=== PATIENT | female | born 1995 | race Caucasian/White ===

== ENCOUNTER 2023-12-19 08:52 | Emergency (ER) | payer OTHER ==
[2023-12-19 09:29] VITALS: O2SAT 100
[2023-12-19 09:33] LABS: BASOPHILS % (AUTO) 0.2 %; EOSINOPHILS # (AUTO) 0.2 10^3/uL (0.0-0.7); EOSINOPHILS % (AUTO) 2.3 %; HCT - HEMATOCRIT 40.9 % (37.0-47.0); HGB - HEMOGLOBIN 14.2 g/dL (12.0-16.0); LYMPHOCYTES # (AUTO) 1.7 10^3/uL (1.5-3.5); LYMPHOCYTES % (AUTO) 19.1 %; MEAN CORPUSCULAR HEMOGLOBIN 32.6 pg (27.0-31.0); MEAN CORPUSCULAR HGB CONC 34.7 g/dL (32.0-36.0); MEAN PLATELET VOLUME 11.1 fL (7.9-10.8); MONOCYTES # (AUTO) 0.6 10^3/uL (0.0-1.0); MONOCYTES % (AUTO) 6.6 %; NEUTROPHILS # (AUTO) 6.2 10^3/uL (1.5-6.6); NEUTROPHILS % (AUTO) 71.5 %; PLT - PLATELET COUNT 169 10^3/uL (130-450); RED BLOOD COUNT 4.35 10^6/uL (4.20-5.40); WHITE BLOOD COUNT 8.7 x10^3/uL (4.8-10.8)
[2023-12-19 09:43] LABS: BILIRUBIN,URINE NEGATIVE (NEGATIVE); GLUCOSE, URINE (UA) NEGATIVE (NEGATIVE); KETONES,URINE (UA) NEGATIVE (NEGATIVE); LEUKOCYTE ESTERASE, URINE NEGATIVE (NEGATIVE); NITRITE,URINE NEGATIVE (NEGATIVE); OCCULT BLOOD,URINE TRACE-INTA (NEGATIVE); PROTEIN,URINE NEGATIVE (NEGATIVE); UROBILINOGEN,URINE 0.2 (NORMAL) E.U./dL (NORMAL)
[2023-12-19] MEDS ORDERED: iohexoL-300 100 ML VIAL ONE (09:44)
[2023-12-19 09:48] LABS: ALBUMIN 4.6 g/dL (3.2-5.5); ALBUMIN/GLOBULIN RATIO 1.7 (1.0-2.2); BILIRUBIN,TOTAL 1.1 mg/dL (0.2-1.0); CALCIUM 9.4 mg/dL (8.5-10.3); POTASSIUM 3.9 mmol/L (3.5-4.5); TOTAL PROTEIN 7.3 g/dL (6.4-8.9)
[2023-12-19 09:49] LABS: CLARITY,URINE CLEAR (CLEAR); HCG UR QUAL NEGATIVE
--- NOTE | 2023-12-19 11:25 | Ultrasound Report ---
PROCEDURE: Pelvic w/Transvag+Doppler Comp INDICATIONS: pelvic pain, L., ovarian cyst CT TECHNIQUE: Real-time scanning was performed of the pelvic organs, with image documentation. Additional endovagi nal scanning was necessary due to incomplete visualization of the adnexal and endometrial structures by transabdominal scanning. Doppler interrogation was performed of the ovaries bilaterally. COMPARISON: Abdominal and pelvic CT dated 12/19/2023 FINDINGS: Uterus: Uterus is anteverted and normal in size at 7.2 x 2.9 x 3.6 cm. The myometrium is homogeneou s. The endometrium measures 9 mm in combined thickness. Ovaries: The right ovary measures 4.5 x 2.0 x 2.5 cm, with a calculated ovarian volume of 12.06 cc. The left ovary measures 5.2 x 5.2 x 5.4 cm, with a calculated ovarian volume of 76.6 cc. Appropriat e blood flow to the ovaries with Doppler interrogation. There are greater than 12 subcentimeter fol licles in the right ovary. There are fewer than 12 subcentimeter follicles in the left ovary. No adn exal masses are seen. There is a complex cystic lesion within the left ovary which measures 4.8 x 4.5 x 4.6 cm. Other: No pathologic free abdominal or pelvic fluid. IMPRESSION: 1. Greater than 12 follicles in the right ovary. In the setting of auditory dysfunction, this finding can be associated with polycystic ovarian syndrome. 2. Large complex appearing left ovarian cyst. Differential considerations include hepatic cyst and en dometrioma. 6-12 week sonographic follow-up recommended. 3. Appropriate blood flow is visualized bilaterally within the ovaries. No findings to suggest torsio n at this time although intermittent torsion cannot be excluded. Reviewed by: Ambreen Washburn MD on 12/19/2023 11:23 AM PDT Approved by: Ambreen Washburn MD on 12/19/2023 11:23 AM PDT Station ID: [id number]
[2023-12-19 11:36] VITALS: BP 124/80
--- NOTE | 2023-12-19 11:41 | ED Physician Documentation ---
PD HPI ABD PAIN - Stated complaint Stated Complaint: ABD PX - Chief complaint Chief Complaint: Abd Pain - History obtained from History obtained from: Patient, Family - History of Present Illness Timing - onset: How many days ago (4) Timing - duration: Days (4) Timing - details: Gradual onset Pain level max: 5 Pain level now: 5 Quality: Aching, Pain Location: RLQ, Suprapubic, LLQ Radiation: No: Chest, , Lower back, Left flank, Left shoulder, Right flank, Right shoulder Improved by: Laying still Worsened by: Moving Associated symptoms: No: Fever, Nausea, Vomiting, Hematemesis, Diarrhea, Constipation, Melena, Hematochezia, Dysuria, Hematuria, Chest pain, Dizzy, Near syncope / syncope - Additional information Additional information: LMP was 2 weeks ago Review of Systems Constitutional: denies: Fever, Chills GI: denies: Vomiting, Diarrhea : denies: Dysuria, Frequency, Hesitancy, Now EGA Skin: denies: Rash Musculoskeletal: denies: Neck pain, Back pain PD PAST MEDICAL HISTORY - Past Medical History Past Medical History: No - Past Surgical History Past Surgical History: No - Present Medications Home Medications: Ambulatory Orders Medication Instructions Recorded Confirmed HYDROcod/ACETAM 5/325 [Darden 5/325] 1 - 2 ea PO Q6H PRN #14 tablet 12/19/23 Ondansetron Odt [Zofran] 4 mg TL Q6H PRN #10 tablet 12/19/23 - Allergies Allergies/Adverse Reactions: Allergies Allergy/AdvReac Type Severity Reaction Status Date / Time No Known Drug Allergies Allergy Verified 12/19/23 09:19 - Social History Does the pt smoke?: No Smoking Status: Never smoker Does the pt drink ETOH?: Yes Does the pt have substance abuse?: No - Immunizations Immunizations are current?: Yes - POLST Patient has POLST: No PD ED PE NORMAL - Vitals Vital signs reviewed: Yes - General General: Alert and oriented X 3, No acute distress - HEENT HEENT: PERRL, Moist mucous membranes - Neck Neck: Supple, no meningeal sign - Cardiac Cardiac: RRR, Strong equal pulses - Respiratory Respiratory: No respiratory distress, Clear bilaterally - Abdomen Abdomen: Soft, Non distended, Other (Tender to palpation left lower quadrant/suprapubic. No peritoneal signs.) - Back Back: No CVA TTP, No spinal TTP - Derm Derm: Warm and dry - Extremities Extremities: No edema - Neuro Neuro: Alert and oriented X 3 - Psych Psych: Normal mood, Normal affect Results - Vitals Vitals: Vital Signs - 24 hr 12/19/23 12/19/23 09:16 11:19 Temperature 36.6 C Heart Rate 93 70 Respiratory 20 16 Rate Blood Pressure 122/76 124/80 O2 Saturation 100 100 Oxygen O2 Source Room air - Labs Labs: Laboratory Tests 12/19/23 12/19/23 12/19/23 09:25 09:29 09:29 WBC 8.7 RBC 4.35 Hgb 14.2 Hct 40.9 MCV 94.0 MCH 32.6 H MCHC 34.7 RDW 12.0 Plt Count 169 MPV 11.1 H Neut # (Auto) 6.2 Lymph # (Auto) 1.7 [place] # (Auto) 0.6 Eos # (Auto) 0.2 Baso # (Auto) 0.0 Absolute Nucleated RBC 0.00 Nucleated RBC % 0.0 Sodium 138 Potassium 3.9 Chloride 105 Carbon Dioxide 26 Anion Gap 7.0 BUN 10 Creatinine 1.0 Estimated GFR (MDRD) 67 L Glucose 91 Calcium 9.4 Total Bilirubin 1.1 H AST 15 ALT 14 Alkaline Phosphatase 62 Total Protein 7.3 Albumin 4.6 Globulin 2.7 Albumin/Globulin Ratio 1.7 Lipase 13 Urine Color YELLOW Urine Clarity CLEAR Urine pH 7.0 Ur Specific [place] 1.010 Urine Protein NEGATIVE Urine Glucose (UA) NEGATIVE Urine Ketones NEGATIVE Urine Occult Blood TRACE-INTA Urine Nitrite NEGATIVE Urine Bilirubin NEGATIVE Urine Urobilinogen 0.2 (NORMAL) Ur Leukocyte Esterase NEGATIVE Ur Microscopic Review NOT INDICATED Urine Culture Comments NOT INDICATED Urine HCG, Qual NEGATIVE - Rads (name of study) CT abdomen and pelvis Relevant Findings:: Final report received, See rad report Pelvic ultrasound Relevant Findings:: Final report received, See rad report PD Medical Decision Making - ED course Complexity details: reviewed results, re-evaluated patient, considered differential, d/w patient ED course: 28-year-old female with lower abdominal pain, LMP was 2 weeks ago. She states she did have an ovarian cyst when she was a child, CT scan shows a large left- sided ovarian cyst and a possible hemorrhagic right ovarian cyst. Pelvic ultrasound was ordered, no torsion, but does appear to have a complex left-sided ovarian cyst. No significant lab abnormalities. Pain well-controlled in the emergency department we will prescribe pain medication for home. Patient will follow-up with her PCP for further care and repeat ultrasound in approximately 6 weeks. Patient counseled regarding signs and symptoms for which I believe and urgent re-evaluation would be necessary. Patient with good understanding of and agreement to plan and is comfortable going home at this time This document was made in part using voice recognition software. While efforts are made to proofread this document, sound alike and grammatical errors may occur. Departure - Departure Disposition: Home, Self Care Clinical Impression: Cyst of ovary Qualifiers: Laterality: left Qualified Code(s): N83.202 - Unspecified ovarian cyst, left side Condition: Good Instructions: ED Cyst Ovarian Follow-Up: your,doctor in 1 week [Other] Prescriptions: HYDROcod/ACETAM 5/325 [Darden 5/325] 1 - 2 ea PO Q6H PRN #14 tablet PRN Reason: Pain Ondansetron Odt [Zofran] 4 mg TL Q6H PRN #10 tablet PRN Reason: Nausea / Vomiting Comments: Your prescriptions were sent to [facility] in [place]. You do have a large left ovarian cyst, recommend that you have a 6-week follow-up ultrasound, scheduled with your doctor. I have included the read below. Your pain should improve over the next few days, please return if you worsen. I am prescribing a short course of narcotic pain medication for you. These are potentially dangerous and addictive medications that should be used carefully. These medications may constipate you. Take an [id number] stool softener (docusate) twice daily with plenty of water while taking these medications. If you go 24 hours without a bowel movement, take [id number] miralax, per package instructions. Do not drink or drive while taking these medications. If you received narcotic or sedating medications while in the emergency department, do not drive for 24 hours. Store this medication in a safe, secure place and out of reach of children. It is a violation of federal law to give or sell this medication to another person or to use in a manner other than prescribed. The ED will not refill narcotic prescriptions, including prescriptions lost or stolen. To dispose of unwanted medications: 1. [facility] at [address] in [place] has a medication drop box. They accept prescription medications (in pill form) Tuesday through Tuesday 9:00 a.m. to 5:00 p.m. 2. The [facility] [employer] accepts prescription medications (in pill form only) for disposal year round. Call for more information. 3. Contact the [facility] for the next [facility] sponsored prescription drug collection event. , [phone], or [phone]; PROCEDURE: Pelvic w/Transvag+Doppler Comp INDICATIONS: pelvic pain, L., ovarian cyst CT TECHNIQUE: Real-time scanning was performed of the pelvic organs, with image documentation. Additional endovaginal scanning was necessary due to incomplete visualization of the adnexal and endometrial structures by transabdominal scanning. Doppler interrogation was performed of the ovaries bilaterally. COMPARISON: Abdominal and pelvic CT dated 12/19/2023 FINDINGS: Uterus: Uterus is anteverted and normal in size at 7.2 x 2.9 x 3.6 cm. The myometrium is homogeneous. The endometrium measures 9 mm in combined thickness. Ovaries: The right ovary measures 4.5 x 2.0 x 2.5 cm, with a calculated ovarian volume of 12.06 cc. The left ovary measures 5.2 x 5.2 x 5.4 cm, with a calculated ovarian volume of 76.6 cc. Appropriate blood flow to the ovaries with Doppler interrogation. There are greater than 12 subcentimeter follicles in the right ovary. There are fewer than 12 subcentimeter follicles in the left ovary. No adnexal masses are seen. There is a complex cystic lesion within the left ovary which measures 4.8 x 4.5 x 4.6 cm. Other: No pathologic free abdominal or pelvic fluid. IMPRESSION: 1. Greater than 12 follicles in the right ovary. In the setting of auditory dysfunction, this finding can be associated with polycystic ovarian syndrome. 2. Large complex appearing left ovarian cyst. Differential considerations include hepatic cyst and endometrioma. 6-12 week sonographic follow-up recommended. 3. Appropriate blood flow is visualized bilaterally within the ovaries. No findings to suggest torsion at this time although intermittent torsion cannot be excluded. Reviewed by: Ambreen Washburn MD on 12/19/2023 11:23 AM PDT Approved by: Ambreen Washburn MD on 12/19/2023 11:23 AM PDT Forms: PCP List Discharge Date/Time: 12/19/23 12:05
[2023-12-19] MEDS: KETOROLAC 30 MG/ML VIAL IVP STA (11:44)
--- NOTE | 2023-12-19 12:00 | CT Report ---
PROCEDURE: Abdomen/Pelvis W INDICATIONS: lower abd pain x 3 days CONTRAST: Omni 300 100ml TECHNIQUE: After the administration of intravenous contrast, a CT scan of the abdomen and pelvis was performed. Images were recorded and evaluated at appropriate window settings. Reformats: coronal and sagittal. F or radiation dose reduction, the following was used: automated exposure control, adjustment of mA and /or kV according to patient size. COMPARISON: None. FINDINGS: Image quality: Diagnostic. Lower chest: Unremarkable. Liver: No solid mass. Gallbladder: No radiopaque stones or wall thickening. Biliary tree: No intrahepatic or extrahepatic dilation, accounting for age. Spleen: No splenomegaly. Pancreas: No pancreatic ductal dilation. Adrenals: No adrenal nodule. Kidneys and ureters: No hydronephrosis. No renal cystic lesion which requires follow up. No solid mas s. Stomach, bowel and peritoneum: No gastric or small bowel dilation. No abnormal wall thickening. No pa thologic free fluid. Lymph nodes: No central or retroperitoneal adenopathy. Vessels: No infrarenal aortic aneurysm. Patent portal vein. PELVIS Reproductive organs: There is a cystic lesion likely involving the left adnexa measuring 4.3 cm. Ther e is mild to moderate hemorrhagic fluid present in the pelvis with a Hounsfield measurement of 58, mo st likely representing a ruptured cyst, potentially right-sided. There appears to be a collapsed righ t ovarian cyst. Bladder: No abnormal wall thickening, accounting for underdistention. Pelvic lymph nodes: No pelvic adenopathy by size criteria. Bones: No aggressive osseous abnormality. Other: No significant ventral or inguinal hernia. IMPRESSION: 1. Probable rupture of a right ovarian cyst with associated hemorrhagic fluid present in the pelvis. 2. 4.3 cm left ovarian cyst. Reviewed by: Carlos Eric MD on 12/19/2023 11:59 AM PDT Approved by: Carlos Eric MD on 12/19/2023 11:59 AM PDT Station ID: [id number]
[2023-12-19] MEDS: iohexoL-300 100 ML VIAL IVP ONE (16:42)
== END 2023-12-19 12:05 | disposition home or self-care (01) ==
LOC: ED 08:52
DX: N83.202 Unspecified ovarian cyst, left side (principal)
CPT/HCPCS: 36415; 74177; 76830; 76856; 80053; 81003; 81025; 83690; 85025; 93975; 96374; 99284; Q9967; 81001; 87086